=== PATIENT | male | born 1965 | race Caucasian/White ===

== ENCOUNTER 2018-10-20 13:54 | Emergency (ER) | payer OTHER ==
[~2018-10-20] VITALS: Ht 182.9 cm; Wt 68.0 kg
[2018-10-20 14:09] VITALS: Ht 182.9 cm; Wt 68.0 kg
[2018-10-20 16:46] LABS: BASOPHIL % 0.5 % (0-2)
[2018-10-20 16:51] LABS: PLATELET COUNT 69 x10^3mcL (130-400)
[2018-10-20 17:00] LABS: CALCIUM 8.7 mg/dL (8.5-10.1); CARBON DIOXIDE 24.2 mmol/L (21-32); CHLORIDE SERUM 102 mmol/L (98-107); GFR1 > 60 mL/min; GLUCOSE SERUM 110 mg/dL (74-106); SODIUM SERUM 143 mmol/L (136-145)
[2018-10-20 17:04] LABS: ALBUMIN 4.1 g/dL (3.4-5.0); ALKALINE PHOSPHATASE 119 U/L (46-116); ALT/SGPT 111 U/L (16-63); AST/SGOT 227 U/L (15-37); BILIRUBIN TOTAL 0.4 mg/dL (0.20-1.00); TOTAL PROTEIN, SERUM 7.6 g/dL (6.4-8.2)
[2018-10-20 19:31] LABS: UA SPECIFIC GRAVITY 1.025 (1.005-1.035); microscopic required? YES; urine erythrocyte 1+ (NEGATIVE)
[2018-10-20 22:15] VITALS: BP 127/79
== END 2018-10-20 22:15 | disposition home or self-care (01) ==
LOC: ED 13:54
PROVIDERS: Emergency Medicine
DX: F10.129 Alcohol abuse with intoxication, unspecified (principal); E86.0 Dehydration
CPT/HCPCS: J7030